=== PATIENT | male | born 1990 | race Caucasian/White ===

== ENCOUNTER 2022-12-03 20:07 | Emergency (ER) | payer OTHER ==
[~2022-12-03] VITALS: Ht 185.4 cm; Wt 101.6 kg
[2022-12-03] MEDS ORDERED: SLEEP AID50 MG PO (21:23)
[2022-12-03] MEDS ORDERED: FLUVOXAMINE MA100 MG PO (21:24)
[2022-12-03] MEDS ORDERED: AMITRIPTYLINE100 MG PO (22:12)
[2022-12-03 22:38] VITALS: BP 137/76
== END 2022-12-03 22:39 | disposition home or self-care (01) ==
LOC: ED 20:07
DX: R42 Dizziness and giddiness (principal); Z79.899 Other long term (current) drug therapy
CPT/HCPCS: 36415; 80053; 81001; 83690; 85025